=== PATIENT | female | born 1965 | race Two or more races ===

== ENCOUNTER 2022-12-05 15:16 | Emergency (ER) | payer OTHER, SELFPAY ==
--- NOTE | 2022-12-05 15:23 | ED_ITS ---
HPI - Abdominal Pain General Chief Complaint: Abdominal Pain <EDGAR Starr - Last Filed: 12/05/22 15:26> Stated Complaint: abd pain <EDGAR Starr - Last Filed: 12/05/22 15:26> Time Seen by Provider: 12/05/22 15:35 <EDGAR Starr - Last Filed: 12/05/22 15:26> Source: patient <EDGAR Aguirre Last Filed: 12/05/22 17:14> Mode of arrival: ambulatory <EDGAR Aguirre Last Filed: 12/05/22 17:14> Limitations: no limitations <EDGAR Aguirre Last Filed: 12/05/22 17:14> History of Present Illness HPI narrative: Patient is a 55 year old assigned female at with a history of chronic pancreatitis presenting to the emergency department today with nausea and epigastric pain consistent with previous pancreatitis flares. Patient states that for the last 2 days she has been having another pancreatitis flare including nausea and epigastric pain. Patient denies any dizziness, lightheadedness, vomiting, fever, chills, blurry vision, double vision, loss of vision, chest pain, difficulty breathing, shortness of breath, back pain, night sweats, pain with urination, increased urinary frequency, increased urinary urgency, blood in her urine or stool, syncope or a near syncopal episode, recent trauma or falls, bowel incontinence, bladder incontinence, bowel retention, bladder retention, or any other complaints at this time. <EDGAR Aguirre - Last Filed: 12/05/22 17:14> Onset (ago): day(s) (2) <EDGAR Aguirre - Last Filed: 12/05/22 17:14> Pain Consistency: constant <EDGAR Aguirre Last Filed: 12/05/22 17:14> Location: epigastric <EDGAR Aguirre Last Filed: 12/05/22 17:14> Severity: mild <EDGAR Aguirre Last Filed: 12/05/22 17:14> Pain scale (0-10): 3 <EDGAR Aguirre Last Filed: 12/05/22 17:14> Quality: dull <EDGAR Aguirre - Last Filed: 12/05/22 17:14> Radiation: none <EDGAR Aguirre - Last Filed: 12/05/22 17:14> Exacerbating factors: nothing <EDGAR Aguirre - Last Filed: 12/05/22 17:14> Relieving factors: nothing <EDGAR Aguirre - Last Filed: 12/05/22 17:14> Related Data Home Medications: Previous Rx's Medication Instructions Recorded ondansetron 4 mg disintegrating 4 mg PO Q8H 3 days #9 tabs 12/05/22 tablet <EDGAR Starr - Last Filed: 12/05/22 15:26> Allergies/Adverse Reactions: Allergies Allergy/AdvReac Type Severity Reaction Status Date / Time amoxicillin Allergy Hives Verified 12/05/22 16:45 codeine Allergy Hives Verified 12/05/22 16:45 Penicillins [PCN] Allergy Hives Verified 12/05/22 16:45 <EDGAR Starr - Last Filed: 12/05/22 15:26> Review of Systems Constitutional: Reports no additional constitutional complaints, Denies chills, Denies fever(s) and Denies night sweats <EDGAR Aguirre Last Filed: 12/05/22 17:14> Eyes: Reports no additional eye complaints, Denies blurry vision, Denies change in vision, Denies diplopia, Denies eye discharge, Denies loss of vision and Denies eye pain <EDGAR Aguirre Last Filed: 12/05/22 17:14> Denies dizziness <EDGAR Aguirre Last Filed: 12/05/22 17:14> Cardiovascular: Reports no additional cardiovascular complaints, Denies chest pain, Denies lightheadedness, Denies Loss of Consciousness and Denies dyspnea <EDGAR Aguirre - Last Filed: 12/05/22 17:14> Respiratory: Reports no additional respiratory complaints and Denies dyspnea <EDGAR Aguirre - Last Filed: 12/05/22 17:14> Gastrointestinal: Reports no additional gastrointestinal complaints, Reports abdominal pain, Denies melena, Denies hematochezia, Denies change in bowel habits, Denies change in stool character and Reports nausea <EDGAR Aguirre - Last Filed: 12/05/22 17:14> Genitourinary: Denies hematuria, Denies urinary frequency, Denies dysuria, Denies urinary incontinence, Denies urinary hesitancy and Denies urinary urgency <EDGAR Aguirre - Last Filed: 12/05/22 17:14> Musculoskeletal: Reports no additional musculoskeletal complaints, Denies numbness and Denies tingling <EDGAR Aguirre - Last Filed: 12/05/22 17:14> Denies dizziness, Denies loss of vision, Denies numbness and Denies tingling <EDGAR Aguirre - Last Filed: 12/05/22 17:14> Psychiatric: Reports no additional psychiatric complaints <EDGAR Aguirre - Last Filed: 12/05/22 17:14> Endocrine: Reports no additional endocrine complaints <EDGAR Aguirre - Last Filed: 12/05/22 17:14> Hematologic/Lymphatic: Reports no additional hematologic/lymphatic complaints <EDGAR Aguirre - Last Filed: 12/05/22 17:14> Allergic/Immunologic: Reports no additional allergic/immunologic complaints <EDGAR Aguirre - Last Filed: 12/05/22 17:14> [facility] Past Medical History Attestation statement: The following information was validated with the patient. <EDGAR Aguirre - Last Filed: 12/05/22 17:14> Source: old records reviewed and nursing notes reviewed <EDGAR Aguirre - Last Filed: 12/05/22 17:14> Social History Social History: Social History Advance Directives: No Advance Directives Information Provided: No <EDGAR Starr - Last Filed: 12/05/22 15:26> Physical Exam ED Vital Signs: Vital Signs - 24 hr 12/05/22 15:24 Temperature 98.3 F Pulse Rate 72 Respiratory Rate 18 Blood Pressure 130/80 Pulse Oximetry 100 Oxygen Delivery Method Room Air BMI result Body Mass Index 25.5 <EDGAR Starr - Last Filed: 12/05/22 15:26> Vital Signs - 24 hr 12/05/22 15:24 Temperature 98.3 F Pulse Rate 72 Respiratory Rate 18 Blood Pressure 130/80 Pulse Oximetry 100 Oxygen Delivery Method Room Air BMI result Body Mass Index 25.5 <Stella Cardoso PA - Last Filed: 12/05/22 17:14> Const General: cooperative, no acute distress, alert and awake <EDGAR Aguirre - Last Filed: 12/05/22 17:14> Nutritional Appearance: well nourished <Stella Cardoso PA - Last Filed: 12/05/22 17:14> Orientation/consciousness: patient oriented x3 <Stella Cardoso PA - Last Filed: 12/05/22 17:14> Limitations: no limitations <Stella Cardoso PA - Last Filed: 12/05/22 17:14> HENMT Head: Yes normal to inspection and Yes atraumatic <Stella Cardoso PA - Last Filed: 12/05/22 17:14> Ears: hearing grossly normal bilaterally and external ears normal <Stella Cardoso PA - Last Filed: 12/05/22 17:14> General nose exam: Normal external nose present, no nasal discharge noted and no epistaxis <Stella Cardoso PA - Last Filed: 12/05/22 17:14> Face and sinus: Yes normal facial exam, No abrasion and No laceration <Stella Cardoso PA - Last Filed: 12/05/22 17:14> Mouth: Normal oral and palatal mucosa present, no drooling and no muffled voice <Stella Cardoso PA - Last Filed: 12/05/22 17:14> Eyes General: appearance normal, both eyes and all related structures <Stella Cardoso PA - Last Filed: 12/05/22 17:14> Periorbital: periorbital findings normal <Stella Cardoso PA - Last Filed: 12/05/22 17:14> Eyelids: Yes eyelids normal <Stella Cardoso PA - Last Filed: 12/05/22 17:14> Conjunctivae: conjunctivae normal <Stella Cardoso PA - Last Filed: 12/05/22 17:14> Pupils: Equal, round and reactive pupils present <Stella Cardoso PA - Last Filed: 12/05/22 17:14> EOM: EOMs intact bilaterally <Stella Cardoso PA - Last Filed: 12/05/22 17:14> Neck Neck: Yes normal visual inspection, Yes full ROM and Yes no lymphadenopathy <Stella Cardoso MS - Last Filed: 12/05/22 17:14> Chest Chest palpation & inspection: normal inspection of the chest <Stella Cardoso MS - Last Filed: 12/05/22 17:14> Resp Effort & Inspection: normal respiratory effort and able to speak in complete sentences <Stella Cardoso MS - Last Filed: 12/05/22 17:14> Auscultation: clear to auscultation bilaterally <Stella Cardoso MS - Last Filed: 12/05/22 17:14> Cardio Rate: regular rate <Stella Cardoso MS - Last Filed: 12/05/22 17:14> Rhythm: regular rhythm <Stella Cardoso MS - Last Filed: 12/05/22 17:14> GI Inspection: Yes normal to inspection <Stella Cardoso MS - Last Filed: 12/05/22 17:14> Palpation (GI): Soft to palpation, not firm, nontender, no guarding and not rigid <Stella Cardoso MS - Last Filed: 12/05/22 17:14> Neuro General: patient oriented x3 and moves all extremities <Stella Cardoso MS - Last Filed: 12/05/22 17:14> Cranial nerves: Yes Equal, round and reactive pupils present <Stella Cardoso MS - Last Filed: 12/05/22 17:14> Cognition (Neuro): normal cognition <Stella Cardoso MS - Last Filed: 12/05/22 17:14> Motor exam (neuro): 5/5 motor strength present throughout <Stella Cardoso MS - Last Filed: 12/05/22 17:14> Sensory Exam: Normal double simultaneous stimulation for sensation <Stella Cardoso MS - Last Filed: 12/05/22 17:14> Coordination: [id number] test normal <Stella Cardoso MS - Last Filed: 12/05/22 17:14> Extrem General: Yes normal to inspection, Yes full ROM and Yes capillary refill normal <Stella Cardoso MS - Last Filed: 12/05/22 17:14> Psych Appearance: grossly normal <StellaEDGAR Barker - Last Filed: 12/05/22 17:14> Mental Status: mental status grossly normal <EDGAR Aguirre Last Filed: 12/05/22 17:14> Affect: normal affect <EDGAR Aguirre Last Filed: 12/05/22 17:14> Attitude: cooperative <EDGAR Aguirre Last Filed: 12/05/22 17:14> Thought process: Normal thought process present <EDGAR Aguirre Last Filed: 12/05/22 17:14> Thought content: Normal thought content present <EDGAR Aguirre Last Filed: 12/05/22 17:14> Insight: Good insight present (Psych) <EDGAR Aguirre Last Filed: 12/05/22 17:14> Course Course Course Narrative: RME-15:34PM - 57yoF c PMHx of recurrent pancreatitis who is presenting to the ED after being sent from the urgent care for N/V and abd pain for the past 2 days worse today. Denies any fevers, cough, nasal congestion/rhinorrhea, sore throat, chest pain or shortness of breath, diarrhea constipation, any urinary symptoms, recent travel or sick contacts, recent antibiotic usage or others with similar symptoms or possible bad food exposure or any other symptoms complaints or concerns at this time. Plan: Labs, UA, COVID/RSV/flu swab patient will be sent back to the waiting room to be evaluated in the ED. <EDGAR Starr - Last Filed: 12/05/22 15:26> Medical Decision Making Medical Decision Making MDM Narrative: Patient is a 57 year old assigned female at with a history of pancreatitis presenting to the emergency department today with epigastric pain. Patient's physical exam was unremarkable. Patient's blood work was unremarkable. I explained my physical exam findings as well as all test results to the albina ent. I answered all questions asked by the patient. I stressed the importance of the patient taking her medication as prescribed. I stressed the importance of the patient following up with her primary care provider and GI specialist. I stressed the importance of the patient returning to the emergency department immediately if her symptoms were to worsen or if she were to develop any dizziness, shortness of breath, difficulty breathing, chest pain, blurry vision, loss of vision, nausea, vomiting, abdominal pain, fever, chills, back pain, or any other complaints. Patient verbalized agreement and understanding with this treatment plan and discharge. <EDGAR Aguirre - Last Filed: 12/05/22 17:14> Differential Diagnosis Differential Diagnoses: The differential diagnosis associated with the presentation includes <EDGAR Aguirre - Last Filed: 12/05/22 17:14> pancreatitis, epigastric pain, Nausea <EDGAR Aguirre - Last Filed: 12/05/22 17:14> Lab Data MDM Lab Attestation statement: I reviewed the patient's lab results. <EDGAR Aguirre - Last Filed: 12/05/22 17:14> Result Diagrams: 12/05/22 16:18 12/05/22 16:18 <EDGAR Starr - Last Filed: 12/05/22 15:26> Labs: Lab Results 12/05/22 12/05/22 12/05/22 Range/Units 16:18 16:18 16:18 WBC 7.9 (4.8-10.8) X10*3/uL RBC 4.08 L (4.20-5.50) X10*6/uL Hgb 12.2 (12.0-16.0) g/dl Hct 37.2 (37.0-47.0) % MCV 91.2 (80.0-98.0) fL MCH 29.9 (27.0-33.0) pg MCHC 32.8 (31.0-35.0) g/dl RDW 14.6 (11.0-16.0) % Plt Count 189 (160-400) X10*3/uL MPV 9.6 (9.4-12.3) fL Immature Gran % (Auto) 0.4 (0.0-0.4) % Neut % (Auto) 47.7 (45-73) % Lymph % (Auto) 40.3 H (20-40) % [place] % (Auto) 8.8 (2-11) % Eos % (Auto) 2.3 (0-4) % Baso % (Auto) 0.5 (0-2) % Lymph # (Auto) 3.2 (1.2-4.9) X10*3/uL [place] # (Auto) 0.7 (0.1-1.2) X10*3/uL Eos # (Auto) 0.2 (0.0-0.4) X10*3/uL Baso # (Auto) 0.0 (0.0-0.2) X10*3/uL Abs Immat Gran (auto) 0.03 (0.00-0.03) X10*3/uL Absolute Neuts (auto) 3.8 (2.0-8.3) x10*3/uL Absolute Nucleated RBC 0.000 (0.0-0.012) X10*3/uL Nucleated RBC % (auto) 0.0 (0.0-0.2) /100WBC PT 11.1 (10.0-13.1) SEC INR 1.0 (0.9-1.1) Sodium 142 (135-145) mmol/L Potassium 3.4 (3.3-5.1) mmol/L Chloride 106 (96-108) mmol/L Carbon Dioxide 29 (22-29) mmol/L Anion Gap 10 L (12-20) BUN 11 (9-16) mg/dL Creatinine 0.72 (0.5-1.4) mg/dL Estim Creat Clear Calc 74.1 Estimated GFR > 60 Random Glucose 68 (60-115) mg/dL Calcium 9.0 (8.4-10.2) mg/dL Magnesium 1.9 (1.6-2.6) mg/dL Total Bilirubin 0.3 (0.0-1.0) mg/dL AST 14 (5-31) U/L ALT 8 (0-31) U/L Alkaline Phosphatase 94 (39-117) U/L Total Protein 7.0 (6.5-8.0) g/dL Albumin 4.0 (3.5-5.0) g/dL Lipase 18 (8-78) U/L Urine Color Urine Appearance Urine pH (5.0-9.0) Ur Specific [place] (1.005-1.025) Urine Protein (Neg-Trace) mg/dL Urine Glucose (UA) (Negative) mg/dL Urine Ketones (Negative) mg/dL Urine Blood (Negative) Urine Nitrite (Negative) Ur Leukocyte Esterase (Negative) Urine RBC (0-2) /HPF Urine WBC (0-5) /HPF Ur Squamous Epith Cells (0-2) /HPF Urine Bacteria (None Seen) Hyaline Casts (0-2) /LPF Ethyl Alcohol mg/dL 12/05/22 12/05/22 Range/Units 16:18 16:18 WBC (4.8-10.8) X10*3/uL RBC (4.20-5.50) X10*6/uL Hgb (12.0-16.0) g/dl Hct (37.0-47.0) % MCV (80.0-98.0) fL MCH (27.0-33.0) pg MCHC (31.0-35.0) g/dl RDW (11.0-16.0) % Plt Count (160-400) X10*3/uL MPV (9.4-12.3) fL Immature Gran % (Auto) (0.0-0.4) % Neut % (Auto) (45-73) % Lymph % (Auto) (20-40) % [place] % (Auto) (2-11) % Eos % (Auto) (0-4) % Baso % (Auto) (0-2) % Lymph # (Auto) (1.2-4.9) X10*3/uL [place] # (Auto) (0.1-1.2) X10*3/uL Eos # (Auto) (0.0-0.4) X10*3/uL Baso # (Auto) (0.0-0.2) X10*3/uL Abs Immat Gran (auto) (0.00-0.03) X10*3/uL Absolute Neuts (auto) (2.0-8.3) x10*3/uL Absolute Nucleated RBC (0.0-0.012) X10*3/uL Nucleated RBC % (auto) (0.0-0.2) /100WBC PT (10.0-13.1) SEC INR (0.9-1.1) Sodium (135-145) mmol/L Potassium (3.3-5.1) mmol/L Chloride (96-108) mmol/L Carbon Dioxide (22-29) mmol/L Anion Gap (12-20) BUN (9-16) mg/dL Creatinine (0.5-1.4) mg/dL Estim Creat Clear Calc Estimated GFR Random Glucose (60-115) mg/dL Calcium (8.4-10.2) mg/dL Magnesium (1.6-2.6) mg/dL Total Bilirubin (0.0-1.0) mg/dL AST (5-31) U/L ALT (0-31) U/L Alkaline Phosphatase (39-117) U/L Total Protein (6.5-8.0) g/dL Albumin (3.5-5.0) g/dL Lipase (8-78) U/L Urine Color Yellow Urine Appearance Clear Urine pH 6.0 (5.0-9.0) Ur Specific [place] 1.015 (1.005-1.025) Urine Protein Trace (Neg-Trace) mg/dL Urine Glucose (UA) Negative (Negative) mg/dL Urine Ketones Negative (Negative) mg/dL Urine Blood Moderate (2+) H (Negative) Urine Nitrite Negative (Negative) Ur Leukocyte Esterase Negative (Negative) Urine RBC 6-10 H (0-2) /HPF Urine WBC 0-5 (0-5) /HPF Ur Squamous Epith Cells 0-2 (0-2) /HPF Urine Bacteria None Seen (None Seen) Hyaline Casts 0-2 (0-2) /LPF Ethyl Alcohol < 10 mg/dL <EDGAR Starr - Last Filed: 12/05/22 15:26> Lab Results 12/05/22 12/05/22 12/05/22 Range/Units 16:18 16:18 16:18 WBC 7.9 (4.8-10.8) X10*3/uL RBC 4.08 L (4.20-5.50) X10*6/uL Hgb 12.2 (12.0-16.0) g/dl Hct 37.2 (37.0-47.0) % MCV 91.2 (80.0-98.0) fL MCH 29.9 (27.0-33.0) pg MCHC 32.8 (31.0-35.0) g/dl RDW 14.6 (11.0-16.0) % Plt Count 189 (160-400) X10*3/uL MPV 9.6 (9.4-12.3) fL Immature Gran % (Auto) 0.4 (0.0-0.4) % Neut % (Auto) 47.7 (45-73) % Lymph % (Auto) 40.3 H (20-40) % [place] % (Auto) 8.8 (2-11) % Eos % (Auto) 2.3 (0-4) % Baso % (Auto) 0.5 (0-2) % Lymph # (Auto) 3.2 (1.2-4.9) X10*3/uL [place] # (Auto) 0.7 (0.1-1.2) X10*3/uL Eos # (Auto) 0.2 (0.0-0.4) X10*3/uL Baso # (Auto) 0.0 (0.0-0.2) X10*3/uL Abs Immat Gran (auto) 0.03 (0.00-0.03) X10*3/uL Absolute Neuts (auto) 3.8 (2.0-8.3) x10*3/uL Absolute Nucleated RBC 0.000 (0.0-0.012) X10*3/uL Nucleated RBC % (auto) 0.0 (0.0-0.2) /100WBC PT 11.1 (10.0-13.1) SEC INR 1.0 (0.9-1.1) Sodium 142 (135-145) mmol/L Potassium 3.4 (3.3-5.1) mmol/L Chloride 106 (96-108) mmol/L Carbon Dioxide 29 (22-29) mmol/L Anion Gap 10 L (12-20) BUN 11 (9-16) mg/dL Creatinine 0.72 (0.5-1.4) mg/dL Estim Creat Clear Calc 74.1 Estimated GFR > 60 Random Glucose 68 (60-115) mg/dL Calcium 9.0 (8.4-10.2) mg/dL Magnesium 1.9 (1.6-2.6) mg/dL Total Bilirubin 0.3 (0.0-1.0) mg/dL AST 14 (5-31) U/L ALT 8 (0-31) U/L Alkaline Phosphatase 94 (39-117) U/L Total Protein 7.0 (6.5-8.0) g/dL Albumin 4.0 (3.5-5.0) g/dL Lipase 18 (8-78) U/L Urine Color Urine Appearance Urine pH (5.0-9.0) Ur Specific [place] (1.005-1.025) Urine Protein (Neg-Trace) mg/dL Urine Glucose (UA) (Negative) mg/dL Urine Ketones (Negative) mg/dL Urine Blood (Negative) Urine Nitrite (Negative) Ur Leukocyte Esterase (Negative) Urine RBC (0-2) /HPF Urine WBC (0-5) /HPF Ur Squamous Epith Cells (0-2) /HPF Urine Bacteria (None Seen) Hyaline Casts (0-2) /LPF Ethyl Alcohol mg/dL 12/05/22 12/05/22 Range/Units 16:18 16:18 WBC (4.8-10.8) X10*3/uL RBC (4.20-5.50) X10*6/uL Hgb (12.0-16.0) g/dl Hct (37.0-47.0) % MCV (80.0-98.0) fL MCH (27.0-33.0) pg MCHC (31.0-35.0) g/dl RDW (11.0-16.0) % Plt Count (160-400) X10*3/uL MPV (9.4-12.3) fL Immature Gran % (Auto) (0.0-0.4) % Neut % (Auto) (45-73) % Lymph % (Auto) (20-40) % [place] % (Auto) (2-11) % Eos % (Auto) (0-4) % Baso % (Auto) (0-2) % Lymph # (Auto) (1.2-4.9) X10*3/uL [place] # (Auto) (0.1-1.2) X10*3/uL Eos # (Auto) (0.0-0.4) X10*3/uL Baso # (Auto) (0.0-0.2) X10*3/uL Abs Immat Gran (auto) (0.00-0.03) X10*3/uL Absolute Neuts (auto) (2.0-8.3) x10*3/uL Absolute Nucleated RBC (0.0-0.012) X10*3/uL Nucleated RBC % (auto) (0.0-0.2) /100WBC PT (10.0-13.1) SEC INR (0.9-1.1) Sodium (135-145) mmol/L Potassium (3.3-5.1) mmol/L Chloride (96-108) mmol/L Carbon Dioxide (22-29) mmol/L Anion Gap (12-20) BUN (9-16) mg/dL Creatinine (0.5-1.4) mg/dL Estim Creat Clear Calc Estimated GFR Random Glucose (60-115) mg/dL Calcium (8.4-10.2) mg/dL Magnesium (1.6-2.6) mg/dL Total Bilirubin (0.0-1.0) mg/dL AST (5-31) U/L ALT (0-31) U/L Alkaline Phosphatase (39-117) U/L Total Protein (6.5-8.0) g/dL Albumin (3.5-5.0) g/dL Lipase (8-78) U/L Urine Color Yellow Urine Appearance Clear Urine pH 6.0 (5.0-9.0) Ur Specific [place] 1.015 (1.005-1.025) Urine Protein Trace (Neg-Trace) mg/dL Urine Glucose (UA) Negative (Negative) mg/dL Urine Ketones Negative (Negative) mg/dL Urine Blood Moderate (2+) H (Negative) Urine Nitrite Negative (Negative) Ur Leukocyte Esterase Negative (Negative) Urine RBC 6-10 H (0-2) /HPF Urine WBC 0-5 (0-5) /HPF Ur Squamous Epith Cells 0-2 (0-2) /HPF Urine Bacteria None Seen (None Seen) Hyaline Casts 0-2 (0-2) /LPF Ethyl Alcohol < 10 mg/dL <EDGAR Aguirre - Last Filed: 12/05/22 17:14> Medications Administered Discontinued Medications Generic Name Dose Route Start Last Admin Trade Name Freq PRN Reason Stop Dose Admin Sodium Chloride 1,000 mls @ 999 mls/hr 12/05/22 15:45 12/05/22 16:21 Ns IV 12/05/22 16:45 999 mls/hr .Q1H1M WILNER Administration Morphine Sulfate 4 mg 12/05/22 15:44 12/05/22 16:24 Morphine Sulfate 4 Mg/Ml Cartridge IVPUSH 12/05/22 15:45 4 mg ONCE ONE Administration Protocol <EDGAR Starr - Last Filed: 12/05/22 15:26> Medications Administered Discontinued Medications Generic Name Dose Route Start Last Admin Trade Name Sameer PRN Reason Stop Dose Admin Sodium Chloride 1,000 mls @ 999 mls/hr 12/05/22 15:45 12/05/22 16:21 Ns IV 12/05/22 16:45 999 mls/hr .Q1H1M WILNER Administration Morphine Sulfate 4 mg 12/05/22 15:44 12/05/22 16:24 Morphine Sulfate 4 Mg/Ml Cartridge IVPUSH 12/05/22 15:45 4 mg ONCE ONE Administration Protocol <EDGAR Aguirre - Last Filed: 12/05/22 17:14> Discharge Plan Discharge Clinical Impression: Chronic pancreatitis <DEGAR Starr - Last Filed: 12/05/22 15:26> Patient Disposition: Home, Self-Care <EDGAR Starr - Last Filed: 12/05/22 15:26> Instructions: Pancreatitis (ED) <EDGAR Starr - Last Filed: 12/05/22 15:26> Additional Instructions: Follow up with your primary care provider and your GI specialist. Return to the emergency department immediately if your symptoms worsen or if you develop any dizziness, shortness of breath, difficulty breathing, chest pain, blurry vision, loss of vision, nausea, vomiting, abdominal pain, fever, chills, back pain, or any other complaints. <EDGAR Starr - Last Filed: 12/05/22 15:26> Prescriptions: New ondansetron 4 mg tablet,disintegrating 4 mg PO Q8H 3 Days Qty: 9 0RF <EDGAR Starr - Last Filed: 12/05/22 15:26> Referrals: [facility] G[facility]ology Services [Provider Group] (Call to establish and follow up with a GI specialist. If you already have a GI specialist, please follow up with them. ) [facility] Family Medicine [Provider Group] (Call to establish and follow up with a primary care provider. If you already have a primary care provider, please follow up with them. ) [facility] Primary Care, [place] [Provider Group] (Call to establish and follow up with a primary care provider. If you already have a primary care provider, please follow up with them. ) [facility],[place] [Provider Group] (Call to establish and follow up with a primary care provider. If you already have a primary care provider, please follow up with them. ) <EDGAR Starr - Last Filed: 12/05/22 15:26> Print Language: Bahraini <EDGAR Starr - Last Filed: 12/05/22 15:26>
[2022-12-05 15:24] VITALS: BP 130/80; PULSE 72; RESP 18; TEMP 36.8; O2SAT 100; BMI 25.5
[2022-12-05] MEDS: 0.9 % Sodium Chloride 1,000 ML 999 ML IV (16:21)
[2022-12-05] MEDS: Morphine Sulfate 4 MG/ML CARTRIDGE IVPUSH (16:24)
[2022-12-05 16:26] LABS: MANUAL DIFF FLAG NO
[2022-12-05 16:28] LABS: Appearance Urine Clear; Color Urine Yellow; Glucose Urine UA Negative (Negative); Leukocyte Esterase Urine Negative (Negative); Nitrite Urine Negative (Negative); Specific Gravity - Urine 1.015 (1.005-1.025); UMIC TRIGGER UACC YES; Urine Blood Moderate (2+) (Negative); Urine Ketones Negative (Negative); Urine Protein Trace mg/dL (Neg-Trace)
[2022-12-05 16:30] LABS: Bacteria Urine None Seen (None Seen); Basophils Percent Auto 0.5 % (0-2); Eosinophils Absolute Auto 0.2 X10*3/uL (0.0-0.4); Eosinophils Percent Auto 2.3 % (0-4); Hematocrit 37.2 % (37.0-47.0); Hemoglobin 12.2 g/dl (12.0-16.0); Hyaline Casts Urine 0-2 /LPF (0-2); Imm Gran Abs Auto 0.03 X10*3/uL (0.00-0.03); Imm Gran Pct Auto 0.4 % (0.0-0.4); Lymphocytes Absolute Auto 3.2 X10*3/uL (1.2-4.9); Lymphocytes Percent Auto 40.3 % (20-40); Mean Corpuscular HGB Conc 32.8 g/dl (31.0-35.0); Mean Corpuscular Hemoglobin 29.9 pg (27.0-33.0); Mean Corpuscular Volume 91.2 fL (80.0-98.0); Mean Platelet Volume 9.6 fL (9.4-12.3); Monocytes Absolute Auto 0.7 X10*3/uL (0.1-1.2); Monocytes Percent Auto 8.8 % (2-11); Neutrophils Absolute Auto 3.8 x10*3/uL (2.0-8.3); Neutrophils Percent Auto 47.7 % (45-73); Platelet Count 189 X10*3/uL (160-400); Red Blood Count 4.08 X10*6/uL (4.20-5.50); Red Cell Distribution Width 14.6 % (11.0-16.0); Squamous Epithelial Cell Urine 0-2 /HPF (0-2); WBC Urine 0-5 /HPF (0-5); White Blood Count 7.9 X10*3/uL (4.8-10.8)
[2022-12-05 16:33] LABS: Prothrombin Time 11.1 SEC (10.0-13.1)
[2022-12-05 16:38] LABS: Ethanol < 10 mg/dL
[2022-12-05 16:41] LABS: Alanine Aminotransferase 8 U/L (0-31); Alkaline Phosphatase 94 U/L (39-117); Anion Gap 10 (12-20); Aspartate Amino Transferase 14 U/L (5-31); Bilirubin Total 0.3 mg/dL (0.0-1.0); Blood Urea Nitrogen 11 mg/dL (9-16); Carbon Dioxide 29 mmol/L (22-29); Chloride 106 mmol/L (96-108); Creatinine Clr Calc Pharmacy 74.1; Estimated Glomerular Filt Rate > 60; Glucose Random 68 mg/dL (60-115); Lipase 18 U/L (8-78); Magnesium 1.9 mg/dL (1.6-2.6); Potassium 3.4 mmol/L (3.3-5.1); Sodium 142 mmol/L (135-145)
[2022-12-05 17:35] VITALS: BP 149/78; PULSE 70; RESP 18; TEMP 36.5; O2SAT 98
== END 2022-12-05 17:35 | disposition home or self-care (01) ==
PROVIDERS: Physician Assistant Medical; Emergency Provider Emergency Medicine
DX: K86.1 Other chronic pancreatitis (principal)
CPT/HCPCS: 36415; 80053; 81001; 82077; 83690; 83735; 85025; 85610; 96374; 99284; J2270